=== PATIENT | female | born 1935 | race Caucasian/White ===

== ENCOUNTER 2017-06-08 10:00 | Emergency (ER) | payer MEDICARE ==
[~2017-06-08] VITALS: Ht 162.6 cm; Wt 88.0 kg
--- NOTE | 2017-06-08 10:10 | NUR ---
BBRA FROM HOME C/O R HIP PAIN S/P BENDING OVER REACHING FOR AN ITEM, COMPLAINS OF SEVERE PAIN ON MOVEMENT, BLE NOTED ASYMMETRICAL. MORPHINE GIVEN IN FIELD. PTWITH HX OF HIP DISLOCATION. VSS AT THIS TIME
--- NOTE | 2017-06-08 10:22 | NUR ---
JOB SERVICE CONSULTANT AT FOR BLOOD DRAW.
[2017-06-08 10:33] LABS: BASOPHILS % (AUTO) 0.5 % (0.0-2.0); EOSINOPHILS # (AUTO) 0.3 /CMM (0.0-0.7); EOSINOPHILS % (AUTO) 3.8 % (0.0-6.0); HEMATOCRIT 40 % (33-45); HEMOGLOBIN 13.5 g/dL (11.5-14.8); LYMPHOCYTES # (AUTO) 1.7 /CMM (0.8-4.8); MEAN CORPUSCULAR HEMOGLOBIN 31 PG (26.0-33.0); MEAN CORPUSCULAR HGB CONC 34 g/dl (31.0-36.0); MEAN CORPUSCULAR VOLUME 91 fL (82-100); MONOCYTES # (AUTO) 0.4 /CMM (0.1-1.30); MONOCYTES % (AUTO) 5.5 % (2.0-12.0); NEUTROPHILS # (AUTO) 4.3 /CMM (1.8-8.9); NEUTROPHILS % (AUTO) 64.2 % (43.0-81.0); PLATELET COUNT (AUTO) 306 /CMM (150-450); RDW COEFFICIENT OF VARIATION 12.8 (11.5-15.0); RED BLOOD CELL COUNT(AUTO) 4.44 MIL/uL (4.0-5.2); WHITE BLOOD COUNT (AUTO) 6.7 K/uL (4.3-11.0)
[2017-06-08 10:44] LABS: CALCIUM, SERUM 9.6 mg/dL (8.5-10.1); CARBON DIOXIDE 27 mmol/L (21-32); CHLORIDE 108 mmol/L (98-107); GLUCOSE 112 mg/dL (74-106); POTASSIUM 4.2 mmol/L (3.5-5.1); SODIUM SERUM 141 mmol/L (136-145); UREA NITROGEN, BLOOD 23 mg/dL (7-18)
--- NOTE | 2017-06-08 10:50 | NUR ---
CONSENT SIGNED FOR CLOSED REDUCTION UNDER MODERATE SEDATION. PT VERBALIZES UNDERSTANDING. FAMILY MEMBER AT BS. ALL QUESTIONS ANSWERED.
[2017-06-08] MEDS ORDERED: PROPOFOL 20 ML IV ONE (11:03)
[2017-06-08] MEDS ORDERED: KETAMINE HCL (500MG/10ML) 50 MG/ML VIAL ONE (11:03)
[2017-06-08 11:19] LABS: INR 1.03 (0.87-1.13); PROTHROMBIN TIME 10.7 SECS (9.5-12.7)
[2017-06-08] MEDS: PROPOFOL 200 MG/20 ML VIAL IV ONE (11:34)
[2017-06-08] MEDS: KETAMINE HCL (500MG/10ML) 50 MG/ML VIAL IV ONE (11:34)
--- NOTE | 2017-06-08 11:48 | NUR ---
PANTERA AT BS.
--- NOTE | 2017-06-08 11:55 | NUR ---
PT AWAKE, ALERT AND ORIENTED NOTED TALKING TO FAMILY MEMBER. VSS. WILL MONITOR.
--- NOTE | 2017-06-08 12:56 | NUR ---
CALLED [facility] FOR TRANSPORT BACK HOME,ETA [id number]
--- NOTE | 2017-06-08 13:00 | NUR ---
Patient is resting comfortably in bed with eyes closed. Easily aroused. VSS
--- NOTE | 2017-06-08 14:50 | NUR ---
CALLED [facility] FOR UPDATE- ETA IN 5 MINS.
--- NOTE | 2017-06-08 15:20 | NUR ---
REPORT GIVEN TO [facility] FOR TRANSPORT.
--- NOTE | 2017-06-08 15:26 | NUR ---
Patient discharged to home in stable condition. Written and verbal after care instructions given. Patient /FAMILY MEMBER verbalizes understanding of instruction.
[2017-06-08 15:29] VITALS: BP 136/71
== END 2017-06-08 15:30 | disposition home or self-care (01) ==
LOC: ER 10:03
DX: S73.004A Unspecified dislocation of right hip, initial encounter (principal); E11.9 Type 2 diabetes mellitus without complications; X50.9XXA Other and unspecified overexertion or strenuous movements or postures, initial encounter; Y93.89 Activity, other specified; Y92.89 Other specified places as the place of occurrence of the external cause; Y99.8 Other external cause status
CPT/HCPCS: 27252; 36415; 73502 ×2; 80048; 85025; 85730; 96374; 99152; 99285; J2704; J3490